=== PATIENT | female | born 1960 | race Caucasian/White ===

== ENCOUNTER → 2020-11-14 | Outpatient (CLI) | payer OTHER ==
--- NOTE | 2020-11-15 09:55 | MM ---
Reason for exam: screening (asymptomatic). Baseline mammogram. History: Patient is postmenopausal. Family history of breast cancer in mother. Physical Findings: Nurse did not find any significant physical abnormalities on exam. MG Screening Mammo w CAD Bilateral CC and MLO view(s) were taken. There are scattered fibroglandular densities. There are multiple asymmetries in the left upper outer quadrant and retroareolar left breast and ultrasound is recommended. ASSESSMENT: Incomplete: need additional imaging evaluation, BI-RAD 0 RECOMMENDATION: Ultrasound of the left breast. [facility] will attempt to contact patient to return for ultrasound.
== END | disposition home or self-care (01) ==
LOC: RADMAMWWP 09:57
PROVIDERS: ATTEND Family Medicine
DX: Z12.31 Encounter for screening mammogram for malignant neoplasm of breast (principal); Z78.0 Asymptomatic menopausal state; Z80.3 Family history of malignant neoplasm of breast
CPT/HCPCS: 77067

== ENCOUNTER → 2020-12-06 | Outpatient (CLI) | payer OTHER ==
--- NOTE | 2020-12-06 10:24 | USB ---
EXAMINATION TYPE: US breast workup limited LT DATE OF EXAM: 12/06/2020 COMPARISON: NONE CLINICAL HISTORY: R92.8. Findings: Targeted left breast ultrasound was performed from 10 to 3 o'clock and in the retroareolar region and axilla. In the left breast at 2:00, there is a 0.7 x 0.4 x 0.7 cm heterogeneous lesion which most likely repr esents a cluster of cysts and is probably benign. In the left breast at 1:00, there is a 0.9 x 0.5 x 0.7 cm heterogeneous lesion which likely represents a cluster of cysts and is probably benign. One of these lesions most likely represents the asymmetry seen on mammogram. IMPRESSION: Follow-up left breast ultrasound is recommended in 6 months for the likely cluster of cysts at 1:00 a nd 2:00. BI-RADS 3, probably benign.
== END | disposition home or self-care (01) ==
LOC: RADUSWWP 09:35
PROVIDERS: ATTEND Family Medicine
DX: N64.89 Other specified disorders of breast (principal)